=== PATIENT | male | born 1990 | race Caucasian/White ===

== ENCOUNTER → 2024-05-30 | Outpatient (CLI) | payer OTHER, SELFPAY ==
--- NOTE | 2024-05-30 09:35 | US_ITS ---
STUDY: ABDOMINAL ULTRASOUND - RIGHT UPPER QUADRANT; ELASTOGRAPHY REASON FOR VISIT: Male, 33 years old. Abnormal liver function tests. TECHNIQUE: Ultrasound evaluation of the right upper quadrant was performed with real-time and static ayala-scale imaging. Point quantification shear wave elastography was performed ([employer]). TECHNICAL QUALITY: Adequate. COMPARISON: None. FINDINGS: Liver: The liver is enlarged and measures 19.6 cm. There is increased echogenicity consistent with fatty infiltration. The bile ducts are within normal limits. There is hepatic color flow. The direction of portal flow is hepatopetal. There is no demonstrated mass lesion. Median liver stiffness measured 18.7 kPa. Gallbladder: Normal distended gallbladder. The gallbladder wall measures 2.8 mm. There is a negative sonographic Steward''s sign. There is no pericholecystic fluid. There are no gallstones. Common Bile Duct (C.B.D.): The common bile duct measures 2.7 mm. Pancreas: There is increased echogenicity of the pancreas. There is no demonstrated pancreatic mass or cyst. Right Kidney: Normal size of the right kidney. The right kidney measures 12.7 cm x 5.4 cm x 4.3 cm. Normal renal cortex. The right cortex measures 1.1 cm. There is no demonstrated renal mass or cyst. There is no right hydronephrosis. US/ABD Limited w/ Elastography IMPRESSION: 1. Liver stiffness measures 18.7 kPa compatible with F3-F4 (Moderate to severe liver fibrosis) Metavir score. Electronically Signed: Eldon Sanchez MD at 15:32 EST ,
== END | disposition home or self-care (01) ==
LOC: US 09:31
PROVIDERS: Referring Provider Internal Medicine; Visit Provider Internal Medicine
DX: R94.5 Abnormal results of liver function studies (principal)
CPT/HCPCS: 76705; 76981

== ENCOUNTER → 2025-02-22 | Outpatient (CLI) | payer OTHER, SELFPAY ==
--- NOTE | 2025-02-22 10:32 | MRI_ITS ---
PROCEDURE: MRI ABD WITH AND W/O CONTRAST 02/22/2025 REASON FOR EXAM: CIRRHOSIS TECHNIQUE: Procedure Code: [id number] Modality: MR Procedure: MRI ABD WITH AND W/O CONTRAST Multiplanar and multisequence images were obtained. CONTRAST: Clariscan VOLUME: 15 mL COMPARISON: none FINDINGS: Average liver showing non homogenous parenchymal signal with wedge shape areas of low T1 and high T2 signal, most evident along segment VIII/VII showing non homogenous post contrast enhancement. No No dilated biliary tracts. The portal vein and hepatic veins apple normal. The gallbladder is unremarkable. The pancreas, adrenals and the spleen are normal in size and signal intensity. No obvious focal lesion is identified. Both kidneys are normal in size and position. No hydronephrosis or focal enhancing masses could be seen in both kidneys. Small and large bowel loops appear largely collapsed however, is grossly unremarkable. No obvious colonic masses or pathological enhancement. Stomach shows no significant abnormality. No ascites or collections. No significant lymph node enlargement is seen in the abdomen. No marrow infiltrative lesions. MRI/MRI Abd WITH and W/O Contrast IMPRESSION: Non homogenous hepatic parenchymal signal with ill defined patchy areas of abno rmal signal and enhancement, possibly inflammatory versus hepatic fibrosis. Advise clinical and laboratory correlation and follow up. Reading [facility]
== END | disposition home or self-care (01) ==
LOC: MRI 10:14
PROVIDERS: Referring Provider Nurse Practitioner Adult Health; Visit Provider Nurse Practitioner Adult Health
DX: R94.5 Abnormal results of liver function studies (principal)
CPT/HCPCS: 74183; A9575; A4216

== ENCOUNTER → 2025-04-15 | Outpatient (CLI) | payer OTHER, SELFPAY ==
--- NOTE | 2025-04-15 08:45 | MRI_ITS ---
PROCEDURE: MRI/Upper Ext Joint Only(Routine)
== END | disposition home or self-care (01) ==
LOC: MRI 08:41
PROVIDERS: Referring Provider Internal Medicine; Visit Provider Internal Medicine
DX: M25.512 Pain in left shoulder (principal)
CPT/HCPCS: 73221